=== PATIENT | male | born 1985 | race Caucasian/White ===

== ENCOUNTER 2019-03-17 15:15 | Emergency (ER) | payer OTHER, SELFPAY ==
[2019-03-17 15:49] VITALS: BP 118/77; PULSE 70; RESP 16; TEMP 37.1; O2SAT 98
--- NOTE | 2019-03-17 16:25 | ED.EYEPROB ---
HPI - Eye Problem <Nazanin Stapleton PA-C - Last Filed: 03/17/19 21:34> General Chief complaint: Eye Problems Stated complaint: Red in both eye, screaming headache for 3 days Time Seen by Provider: 03/17/19 16:10 Source: patient Mode of arrival: ambulatory Limitations: no limitations History of Present Illness HPI Narrative: This healthy 33-year-old male complains of red, irritated eyes with drainage and crusting for the last 3 days, started on the right. He has also had a ?pounding? headache, noticing more in the right side of the sinuses. He states he feels somewhat congested. He denies cough or wheeze. He has had intermittent fever at home along with several other family members. He denies rash or other new symptoms. He has tried Tylenol and fluids without relief. Related Data Allergies Allergy/AdvReac Type Severity Reaction Status Date / Time No Known Drug Allergies Allergy Verified 03/17/19 15:52 Review of Systems <Nazanin Stapleton PA-C - Last Filed: 03/17/19 21:34> Review of Systems ROS Unobtainable: All systems reviewed & are unremarkable except as noted in HPI and below PFSH <Nazanin Stapleton PA-C - Last Filed: 03/17/19 21:34> Medical History (Updated 03/17/19 @ 18:27 by Nazanin Stapleton PA-C) No chronic problems (Chronic) Surgical History (Updated 03/17/19 @ 17:11 by Nazanin Stapleton PA-C) No history of previous surgery (Chronic) Social History Smoking Status: Former smoker Social History Smoking Status: Former smoker Exam <Nazanin Stapleton PA-C - Last Filed: 03/17/19 21:34> Narrative Exam Narrative: GENERAL APPEARANCE: Patient sitting comfortably, in no distress. HEENT: PERRL, EOMI, bilateral conjunctivae injected with clear drainage, right TM minimally retracted, left is normal, erythematous oropharynx without exudate NECK: Supple, no masses LUNGS: Clear to auscultation bilaterally. HEART: Rate and rhythm regular without murmur, normal S1 and S2, no S3 or S4. NEUROLOGIC: Alert and oriented, normal speech, gait and coordination. MUSCULOSKELETAL: Full Csp AROM DERMATOLOGIC: No exanthem Initial Vital Signs Initial Vital Signs: Vital Signs Temperature 98.7 F 03/17/19 15:49 Pulse Rate 70 03/17/19 15:49 Respiratory Rate 16 03/17/19 15:49 Blood Pressure 118/77 03/17/19 15:49 Pulse Oximetry 98 03/17/19 15:49 <Mehul Acosta DO - Last Filed: 03/18/19 15:08> Initial Vital Signs Initial Vital Signs: Vital Signs Temperature 98.7 F 03/17/19 15:49 Pulse Rate 70 03/17/19 15:49 Respiratory Rate 16 03/17/19 15:49 Blood Pressure 118/77 03/17/19 15:49 Pulse Oximetry 98 03/17/19 15:49 Course <Nazanin Stapleton PA-C - Last Filed: 03/17/19 21:34> Orders Ordered: Discontinued Medications Ibuprofen (Advil) 800 mg PO NOW ONE Stop: 03/17/19 17:32 Last Admin: 03/17/19 17:33 Dose: 800 mg Vital Signs - 8 hr 03/17/19 15:49 Temperature 98.7 F Pulse Rate 70 Respiratory Rate 16 Blood Pressure 118/77 Pulse Oximetry 98 <Mehul Acosta DO - Last Filed: 03/18/19 15:08> Orders Ordered: Discontinued Medications Ibuprofen (Advil) 800 mg PO NOW ONE Stop: 03/17/19 17:32 Last Admin: 03/17/19 17:33 Dose: 800 mg Vital Signs - 8 hr 03/17/19 15:49 Temperature 98.7 F Pulse Rate 70 Respiratory Rate 16 Blood Pressure 118/77 Pulse Oximetry 98 Discharge Plan Departure Patient Disposition: Home Clinical Impression: Acute viral conjunctivitis of both eyes Sinusitis, acute Qualifiers: Sinusitis location: unspecified location Recurrence: non-recurrent Qualified Code(s): J01.90 - Acute sinusitis, unspecified Discharge Date/Time: 03/17/19 18:45 Interventions: ED Discharge Assessment Last Done: 03/17/19 18:45 Instructions: DI for Sinusitis, DI for Conjunctivitis Activity Restrictions/Additional Instructions: I suspect that your pink eye and upper respiratory symptoms including the headaches are due to a virus. Your headaches are most typical of sinus headache, which I believe is part of your infection. These are most commonly caused by a cold type virus and typically resolve on their own. Please take ibuprofen 600-800 mg every 8 hours to help with pain and fever. Add Tylenol as needed. Also take pseudoephedrine to help with your headache and congestion. Return here as we talked about if you have any acutely worsening symptoms, and you should see your eye doctor right away as we discussed if you have vision change or severe eye pain. Use warm compresses to help with the eye drainage and artificial tears type lubricating ointment as needed Referrals: [facility] [[facility]] <Mehul cAosta DO - Last Filed: 03/18/19 15:08> Cosign ED Attending Marco Attestation: I was immediately available in the department for consultation. Documentation has been reviewed. I agree with assessment and plan.
[2019-03-17] MEDS: IBUPROFEN 400 MG TABLET 800 MG PO (17:33)
== END 2019-03-17 18:45 | disposition home or self-care (01) ==
PROVIDERS: Emergency Provider Internal Medicine
DX: B30.9 Viral conjunctivitis, unspecified (principal); J01.90 Acute sinusitis, unspecified
CPT/HCPCS: 99282; 99283

== ENCOUNTER 2019-06-28 17:11 | Emergency (ER) | payer OTHER, SELFPAY ==
[2019-06-28 17:26] VITALS: BP 135/88; PULSE 85; RESP 16; TEMP 36.6; O2SAT 97
--- NOTE | 2019-06-28 17:41 | ED.WOUNDLAC ---
HPI - Wound/Laceration <KEIRA Ko - Last Filed: 06/28/19 19:06> General Chief Complaint: Wound/Laceration Stated Complaint: hit in left eye with a hay hook Time Seen by Provider: 06/28/19 17:31 Source: patient Mode of arrival: Ambulatory Limitations: no limitations History of Present Illness HPI narrative: 34-year-old male presents to the emergency department stating that he was hit in his left upper eyelid with a hay a hook. He states he was loading hay with the son when his son pulled out the hay hook from under the bail and accidentally hit him in the left eyelid. He states this happened a few hours ago. He denies any foreign objects in his left eye, eye pain, eye irritation, vision changes, eye discharge, facial pain, nausea, vomiting, diarrhea, excessive bleeding, or other concerns. He reports a small laceration to his left eyelid, bleeding controlled. Related Data Allergies Allergy/AdvReac Type Severity Reaction Status Date / Time No Known Drug Allergies Allergy Verified 06/28/19 17:28 Review of Systems <KEIRA Ko - Last Filed: 06/28/19 19:06> Review of Systems Narrative: REVIEW OF SYSTEMS: GENERAL: Denies fever or chills. HENT: Denies head trauma. EYE: Denies double vision or vision loss. CARDIOVASCULAR: Denies syncope. MUSCULOSKELETAL: Denies weakness, or deformities. INTEGUMENTARY: Complains of laceration, see HPI. NEURO: Denies numbness or tingling. Patient History <KEIRA Ko - Last Filed: 06/28/19 19:06> Medical History No chronic problems (Chronic) Surgical History No history of previous surgery (Chronic) Social History Smoking Status: Former smoker alcohol intake frequency: holidays/special occasions only Substance Use Type: does not use Exam <KEIRA Ko - Last Filed: 06/28/19 19:06> Narrative Exam Narrative: PHYSICAL EXAMINATION: GENERAL: Well groomed, alert, and cooperative. Answers questions promptly and appropriately. Vital signs noted. HENT: Normocephalic, atraumatic. EYE: PERRLA, EOMI with out pain, no foreign bodies, conjunctiva clear, sclear white. No exudate or discharge. RESPIRATORY: Normal respiratory rate, trachea midline, airway patent. No stridor, nasal flaring or accessory muscle use. MUSCULOSKELETAL: Normal gait and coordination. Equal tone and mass bilaterally. EXTREMITIES: CMS intact. Moves all extremities. SKIN: Warm, dry, soft, appropriate color for ethnicity. 2 cm laceration to upper left periorbital area. Wound bed without foreign body. Bleeding controlled. No surrounding erythema or exudate. NEURO: Alert and Oriented X 3. Good coordination. PSYCH: Appropriate affect and mood. Initial Vital Signs Initial Vital Signs: Vital Signs Temperature 97.8 F 06/28/19 17:26 Pulse Rate 85 06/28/19 17:26 Respiratory Rate 16 06/28/19 17:26 Blood Pressure 135/88 06/28/19 17:26 Pulse Oximetry 97 06/28/19 17:26 <Jodi Darden DO - Last Filed: 06/29/19 07:53> Initial Vital Signs Initial Vital Signs: Vital Signs Temperature 97.8 F 06/28/19 17:26 Pulse Rate 85 06/28/19 17:26 Respiratory Rate 16 06/28/19 17:26 Blood Pressure 135/88 06/28/19 17:26 Pulse Oximetry 97 06/28/19 17:26 Procedures <KEIRA Ko - Last Filed: 06/28/19 19:06> Laceration Repair Laceration 1: Site: face Side (If applicable): left Size (cm): 1.5 Description: linear Depth: simple, single layer Skin layer closed with: dermabond Course <KEIRA Ko - Last Filed: 06/28/19 19:06> Course Course Narrative: Patient's wound was irrigated with 100ml normal saline, wound was glued with Dermabond, see procedure note. Tdap was updated. Orders Ordered: Discontinued Medications Diphtheria/Tetanus/Acell Pertussis (Adacel) 0.5 ml IM .ONCE ONE Stop: 06/28/19 17:30 Last Admin: 06/28/19 17:59 Dose: 0.5 ml Documented by: XAVI Vital Signs Vital signs: Vital Signs - 8 hr 11/09/19 17:26 06/28/19 18:20 Temperature 97.8 F Pulse Rate 85 82 Respiratory Rate 16 16 Blood Pressure 135/88 129/77 Pulse Oximetry 97 96 <Jodi Darden DO - Last Filed: 06/29/19 07:53> Orders Ordered: Discontinued Medications Diphtheria/Tetanus/Acell Pertussis (Adacel) 0.5 ml IM .ONCE ONE Stop: 06/28/19 17:30 Last Admin: 06/28/19 17:59 Dose: 0.5 ml Documented by: XAVI Vital Signs Vital signs: Vital Signs - 8 hr 06/28/19 17:26 06/28/19 18:20 Temperature 97.8 F Pulse Rate 85 82 Respiratory Rate 16 16 Blood Pressure 135/88 129/77 Pulse Oximetry 97 96 MDM - Wound/Laceration <KEIRA Ko - Last Filed: 06/28/19 19:06> Medical Records Attestation: I reviewed the patient's medical records. Lab Data Attestation: I reviewed the patient's lab results. MDM Narrative Medical decision making narrative: Simple laceration repair without concern for eye involvement or foreign body in the eye due to history and lack of findings on examination. Patient was encouraged to monitor wound for infection. ED/Return precautions given for new or worsening symptoms. Discharge Plan Departure Patient Disposition: Home Clinical Impression: Laceration Discharge Date/Time: 06/28/19 18:20 Instructions: DI for Laceration Repair Activity Restrictions/Additional Instructions: Thank you for entrusting me with your care today. As discussed, you have a small laceration on your left eyelid that was repaired with glue. Please monitor for signs of infection such as increased redness, purulent drainage, or increased pain--if these occur please be seen immediately. Your also given urine Tdap injection, you may experience some soreness around the injection site. Return emergency department if he develops chest pain, shortness of breath, dizziness, or other concerning symptoms.
[2019-06-28] MEDS: TET,DIPH,PERTUSS(ACELL),VAC/PF 0.5 ML SYRINGE IM (17:59)
[2019-06-28 18:20] VITALS: BP 129/77; PULSE 82; RESP 16; O2SAT 96
== END 2019-06-28 18:20 | disposition home or self-care (01) ==
PROVIDERS: Emergency Provider Nurse Practitioner
DX: S01.112A Laceration without foreign body of left eyelid and periocular area, initial encounter (principal); W22.8XXA Striking against or struck by other objects, initial encounter; Z23 Encounter for immunization
CPT/HCPCS: 90471; 99282; 99283; 90715

== ENCOUNTER 2019-09-21 18:21 | Emergency (ER) | payer OTHER, SELFPAY ==
[2019-09-21 18:23] VITALS: BP 144/88; PULSE 81; RESP 18; TEMP 36.9; O2SAT 99
--- NOTE | 2019-09-21 18:26 | ED_ITS ---
HPI - GI Bleed General Chief complaint: Nausea/Vomiting/Diarrhea Stated complaint: blood in stool Time Seen by Provider: 09/21/19 18:25 Source: patient Mode of arrival: Ambulatory Limitations: no limitations History of Present Illness HPI Narrative: The patient complains of watery diarrhea for 1 week. He has had no nausea vomiting. He is eating and drinking. We has a bowel movement he also experiences crampy lower abdominal pain. He denies associated fever chills. The situation may have started after he consumed a salsa, described as very hot. He has had that food before without similar situation. He has no history of GI disease. He is now experiencing drops of blood when he has the watery diarrhea. He has rectal pain when he has a diarrhea. He was [facility] at [facility] ago and given promethazine for nausea. He has used the medication a couple times, the lower abdominal cramping pain seems to be the more significant issue. He has no chronic medical problems. He has no urine complaints with the lower abdominal discomfort. Related Data Previous Rx's Medication Instructions Recorded levofloxacin [Levaquin] 500 mg PO DAILY 7 Days tab 09/21/19 Allergies Allergy/AdvReac Type Severity Reaction Status Date / Time No Known Drug Allergies Allergy Verified 06/28/19 17:28 Review of Systems Review of Systems ROS Unobtainable: All systems reviewed & are unremarkable except as noted in HPI and below Constitutional Constitutional: Denies body ache(s), Denies chills, Denies fatigue and Denies fever(s) ENT Ears, Nose, Mouth, and Throat: Denies dizziness Comments: No ENT complaints Cardiovascular Cardiovascular: Denies chest pain, Denies irregular heart rhythm, Denies lightheadedness, Denies palpitations, Denies dyspnea and Denies dyspnea on exertion Respiratory Respiratory: Denies cough, Denies dyspnea, Denies dyspnea on exertion and Denies wheezing Gastrointestinal Gastrointestinal: Reports as per HPI, Reports abdominal pain, Reports change in bowel habits, Reports diarrhea, Denies nausea and Denies vomiting Genitourinary Genitourinary: Denies dysuria, Denies testicular pain and Denies urinary urgency Musculoskeletal Musculoskeletal: Denies back pain and Denies numbness Integumentary/Breasts Skin/Breast: Denies erythema, Denies rash and Denies wounds Neurologic Neurologic: Denies dizziness and Denies numbness Endocrine Endocrine: Denies fatigue and Denies palpitations Allergic/Immunologic Allergic/Immunologic: Denies wheezing Patient History Medical History No chronic problems (Chronic) Surgical History No history of previous surgery (Chronic) Social History Smoking Status: Former smoker Smoking Status: Former smoker alcohol intake frequency: holidays/special occasions only Substance Use Type: does not use Exam Initial Vital Signs Initial Vital Signs: Vital Signs Temperature 98.4 F 09/21/19 18:23 Pulse Rate 81 09/21/19 18:23 Respiratory Rate 18 09/21/19 18:23 Blood Pressure 144/88 H 09/21/19 18:23 Pulse Oximetry 99 09/21/19 18:23 Const General: cooperative and well developed Nutritional Appearance: well nourished HENRI Head: normocephalic and atraumatic Mouth: oral mucosae normal and moist mucous membranes Throat: posterior oropharynx normal Eyes Conjunctivae: conjunctivae normal Resp Effort & Inspection: normal respiratory effort and able to speak in complete sentences Auscultation: clear to auscultation bilaterally, no rales, no rhonchi and no wheezes Cardio Rate: regular rate Rhythm: regular rhythm Heart Sounds: S1 normal, S2 normal, no click, no gallops, no murmurs and no rubs Pulses: normal peripheral pulses GI Inspection: non-distended Palpation: soft, no hepatosplenomegaly, No pulsatile mass and tender (Mild suprapubic and LLQ tenderness. No guarding or rebound.) Auscultation: normal bowel sounds Back/Spine/Pelvis Back: No CVA tenderness Skin General: no rashes or lesions noted Neuro General: alert, oriented x3, gait normal and no focal motor deficits Speech: speech normal Extrem General: full ROM, no pedal edema and no calf tenderness Psych Appearance: well kempt Mental Status: mental status grossly normal Attitude: cooperative Thought Content: normal Judgment: judgment good Course Orders Ordered: Discontinued Medications Sodium Chloride (Normal Saline 0.9%) 1,000 mls @ 1,000 mls/hr IV BOLUS ONE Stop: 09/21/19 19:35 Last Infusion: 09/21/19 21:00 Dose: 0 mls/hr Documented by: Admin: 09/21/19 19:02 Dose: 1,000 mls/hr Documented by: JOVANNY Levofloxacin (Levaquin) 500 mg PO NOW ONE Stop: 09/21/19 21:33 Last Admin: 09/21/19 21:51 Dose: 500 mg Documented by: CLARITA Pantoprazole Sodium (Protonix) 40 mg IV NOW ONE Stop: 09/21/19 18:37 Last Admin: 09/21/19 19:02 Dose: 40 mg Documented by: JOVANNY Vital Signs Vital signs: Vital Signs - 8 hr 09/21/19 18:23 09/21/19 20:45 09/21/19 21:09 Temperature 98.4 F 100.0 F H 99.5 F Pulse Rate 81 85 Respiratory Rate 18 Blood Pressure 144/88 H Blood Pressure [Left Arm] 160/94 H Pulse Oximetry 99 100 MDM - GI Bleed Lab Data Result diagrams: 09/21/19 18:46 09/21/19 18:46 Labs: Lab Results 09/21/19 09/21/19 09/21/19 Range/Units 18:46 18:46 19:29 WBC 10.2 (4.5-11.0) X10^3/uL RBC 4.70 (4.5-5.9) X10^6/uL Hgb 14.3 (13.5-17.5) g/dL Hct 41.7 (41-53) % MCV 88.6 (80-100) fL MCH 30.5 (26-34) PG MCHC 34.4 (30-36) % RDW 12.7 (11.6-14.8) % Plt Count 241 (150-400) X10^3/uL Neut % (Auto) 65.2 (50-75) % Lymph % (Auto) 22.6 L (25-40) % [place] % (Auto) 10.4 (3-14) % Eos % (Auto) 1.4 L (2-4) % Baso % (Auto) 0.4 (0-2) % Neut # (Auto) 6700 (1541-5265) /uL Lymph # (Auto) 2300 (4500-8488) /uL Tw[place]gs # (Auto) 1100 H (0-900) /uL Eos # (Auto) 100 (0-450) /uL Baso # (Auto) 0 (0-100) /uL Sodium 142 (137-145) mmol/L Potassium 3.6 (3.4-5.1) mmol/L Chloride 104 (98-107) mmol/L Carbon Dioxide 29 (22-32) mmol/L BUN 15 (9-20) mg/dL Creatinine 1.10 (0.66-1.25) mg/dL Estimated GFR > 60.0 (>60) mL/min BUN/Creatinine Ratio 13.6 (6-22) Glucose 92 (70-100) mg/dL Calcium 9.3 (8.4-10.2) mg/dL Total Bilirubin 0.6 (0.2-1.3) mg/dL AST 37 (17-59) IU/L ALT 30 (<50) IU/L Alkaline Phosphatase 71 (38-126) U/L Total Protein 7.8 (6.3-8.2) g/dL Albumin 4.3 (3.5-5.0) g/dL Globulin 3.5 (1.7-4.1) g/dL Albumin/Globulin Ratio 1.2 (1.0-2.8) Lipase 104 (23-300) U/L Urine Color Urine Appearance Urine pH (4.5-8.0) Ur Specific [place] (1.000-1.035) Urine Protein (Negative) Urine Glucose (UA) (Negative) g/dL Urine Ketones (NEGATIVE) Urine Occult Blood (Negative) Urine Nitrate (Negative) Urine Bilirubin (NEGATIVE) Urine Urobilinogen (0.2) E.U./dL Ur Leukocyte Esterase (NEGATIVE) Urine RBC (0-5/HPF) Urine WBC (0-5/HPF) Urine Bacteria (None) Ur Culture Indicated? Stl C. cayetanensis PCR Not detected (Not Detect) Stool Rotavirus (PCR) Not detected (Not Detect) Stool Adenovirus (PCR) Not detected (Not Detect) Stool Astrovirus (PCR) Not detected (Not Detect) Stool Cryptosporidium PCR Not detected (Not Detect) Stl E.coli Shiga Tox PCR Not detected (Not Detect) St Sh/Enteroin Ecoli PCR Not detected (Not Detect) Stool E coli O157 PCR Not detected (Not Detect) Stl Enterotoxigenic E PCR Not detected (Not Detect) Stool EPEC (PCR) Not detected (Not Detect) Stl E. histolytica PCR Not detected (Not Detect) Stool Giardia Lamblia PCR Not detected (Not Detect) Stool Sapovirus (PCR) Not detected (Not Detect) Stl P. shigelloides PCR Not detected (Not Detect) St Y.enterocolitica PCR Not detected (Not Detect) Stool Vibrio (PCR) Not detected (Not Detect) Stl Vibrio cholerae PCR Not detected (Not Detect) Stl Enteroaggr Ecoli PCR Not detected (Not Detect) Stl Norovirus GI/GII PCR Not detected (Not Detect) Campylobacter (PCR) Detected H (Not Detect) C. difficile Tox (PCR) Not detected (Not Detect) Salmonella (PCR) Not detected (Not Detect) 09/21/19 Range/Units 19:29 WBC (4.5-11.0) X10^3/uL RBC (4.5-5.9) X10^6/uL Hgb (13.5-17.5) g/dL Hct (41-53) % MCV (80-100) fL MCH (26-34) PG MCHC (30-36) % RDW (11.6-14.8) % Plt Count (150-400) X10^3/uL Neut % (Auto) (50-75) % Lymph % (Auto) (25-40) % Tw[place]gs % (Auto) (3-14) % Eos % (Auto) (2-4) % Baso % (Auto) (0-2) % Neut # (Auto) (1391-1199) /uL Lymph # (Auto) (9378-2863) /uL [place]gs # (Auto) (0-900) /uL Eos # (Auto) (0-450) /uL Baso # (Auto) (0-100) /uL Sodium (137-145) mmol/L Potassium (3.4-5.1) mmol/L Chloride (98-107) mmol/L Carbon Dioxide (22-32) mmol/L BUN (9-20) mg/dL Creatinine (0.66-1.25) mg/dL Estimated GFR (>60) mL/min BUN/Creatinine Ratio (6-22) Glucose (70-100) mg/dL Calcium (8.4-10.2) mg/dL Total Bilirubin (0.2-1.3) mg/dL AST (17-59) IU/L ALT (<50) IU/L Alkaline Phosphatase (38-126) U/L Total Protein (6.3-8.2) g/dL Albumin (3.5-5.0) g/dL Globulin (1.7-4.1) g/dL Albumin/Globulin Ratio (1.0-2.8) Lipase (23-300) U/L Urine Color Yellow Urine Appearance Clear Urine pH 6.5 (4.5-8.0) Ur Specific [place] 1.020 (1.000-1.035) Urine Protein Negative (Negative) Urine Glucose (UA) Negative (Negative) g/dL Urine Ketones Negative (NEGATIVE) Urine Occult Blood Negative (Negative) Urine Nitrate Negative (Negative) Urine Bilirubin Negative (NEGATIVE) Urine Urobilinogen 0.2 (0.2) E.U./dL Ur Leukocyte Esterase Negative (NEGATIVE) Urine RBC None seen (0-5/HPF) Urine WBC None seen (0-5/HPF) Urine Bacteria None seen (None) Ur Culture Indicated? Cult not indicated Stl C. cayetanensis PCR (Not Detect) Stool Rotavirus (PCR) (Not Detect) Stool Adenovirus (PCR) (Not Detect) Stool Astrovirus (PCR) (Not Detect) Stool Cryptosporidium PCR (Not Detect) Stl E.coli Shiga Tox PCR (Not Detect) St Sh/Enteroin Ecoli PCR (Not Detect) Stool E coli O157 PCR (Not Detect) Stl Enterotoxigenic E PCR (Not Detect) Stool EPEC (PCR) (Not Detect) Stl E. histolytica PCR (Not Detect) Stool Giardia Lamblia PCR (Not Detect) Stool Sapovirus (PCR) (Not Detect) Stl P. shigelloides PCR (Not Detect) St Y.enterocolitica PCR (Not Detect) Stool Vibrio (PCR) (Not Detect) Stl Vibrio cholerae PCR (Not Detect) Stl Enteroaggr Ecoli PCR (Not Detect) Stl Norovirus GI/GII PCR (Not Detect) Campylobacter (PCR) (Not Detect) C. difficile Tox (PCR) (Not Detect) Salmonella (PCR) (Not Detect) Discharge Plan Departure Patient Disposition: Home Clinical Impression: Campylobacter gastroenteritis Discharge Date/Time: 09/21/19 22:29 Instructions: DI for Bacterial Gastroenteritis -- Adult Activity Restrictions/Additional Instructions: Be sure you are drinking plenty of fluids and remain well hydrated. Zofran every 4 hours as needed for nausea. Levaquin 1 tablet daily for 7 days. Follow-up with [facility] in 2-3 days for recheck, return to the ER as needed. Prescriptions: New levofloxacin [Levaquin] 500 mg tablet 500 mg PO DAILY 7 Days RF: 0 Stand Alone Forms: Work Release Note
[2019-09-21] MEDS: SODIUM CHLORIDE 0.9% 1,000 ML 1000 ML IV (19:02)
[2019-09-21] MEDS: PANTOPRAZOLE 40 MG VIAL IV (19:02)
[2019-09-21 19:03] LABS: Add Manual Diff / Slide Review NO; Basophils Absolute Auto 0 /uL (0-100); Basophils Percent Auto 0.4 % (0-2); Eosinophils Absolute Auto 100 /uL (0-450); Eosinophils Percent Auto 1.4 % (2-4); Hematocrit 41.7 % (41-53); Hemoglobin 14.3 g/dL (13.5-17.5); Lymphocytes Absolute Auto 2300 /uL (1100-4500); Lymphocytes Percent Auto 22.6 % (25-40); Mean Corpuscular HGB Conc 34.4 % (30-36); Mean Corpuscular Hemoglobin 30.5 PG (26-34); Mean Corpuscular Volume 88.6 fL (80-100); Monocytes Absolute Auto 1100 /uL (0-900); Monocytes Percent Auto 10.4 % (3-14); Neutrophils Absolute Auto 6700 /uL (1500-7000); Neutrophils Percent Auto 65.2 % (50-75); Platelet Count 241 X10^3/uL (150-400); Red Cell Distribution Width 12.7 % (11.6-14.8); White Blood Cell Count 10.2 X10^3/uL (4.5-11.0)
[2019-09-21 19:18] LABS: Alanine Aminotransferase 30 IU/L (<50); Albumin 4.3 g/dL (3.5-5.0); Albumin Globulin Ratio 1.2 (1.0-2.8); Alkaline Phosphatase 71 U/L (38-126); Aspartate Aminotransferase 37 IU/L (17-59); BUN Creatinine Ratio 13.6 (6-22); Bilirubin Total 0.6 mg/dL (0.2-1.3); Blood Urea Nitrogen 15 mg/dL (9-20); Calcium 9.3 mg/dL (8.4-10.2); Carbon Dioxide 29 mmol/L (22-32); Chloride 104 mmol/L (98-107); Estimated Glomerular Filt Rate > 60.0 mL/min (>60); Globulin 3.5 g/dL (1.7-4.1); Glucose 92 mg/dL (70-100); HEMOLYSIS < 15 (0-50); Lipase 104 U/L (23-300); Potassium 3.6 mmol/L (3.4-5.1); Sodium 142 mmol/L (137-145); Total Protein 7.8 g/dL (6.3-8.2)
[2019-09-21 19:39] LABS: Bacteria Urine None Seen; RBC Urine None Seen (0-5/HPF); WBC Urine None Seen (0-5/HPF)
[2019-09-21 19:40] LABS: Appearance Urine UA CLEAR; Bilirubin Urine UA NEGATIVE (NEGATIVE); Color Urine UA YELLOW; Glucose Urine UA NEGATIVE (Negative); Ketones Urine UA NEGATIVE (NEGATIVE); Leukocyte Esterase Urine UA NEGATIVE (NEGATIVE); Nitrite Urine UA NEGATIVE (Negative); Occult Blood Urine UA NEGATIVE (Negative); Protein Urine UA NEGATIVE (Negative); Urobilinogen Urine UA 0.2 E.U./dL (0.2); pH Urine UA 6.5 (4.5-8.0)
[2019-09-21 19:50] LABS: Culture Indicated Urine Cult Not Indicated
[2019-09-21 20:45] VITALS: BP 160/94; PULSE 85; TEMP 37.8; O2SAT 100
[2019-09-21 21:07] LABS: Adenovirus F 40/41 Not Detected (Not Detect); Astrovirus Not Detected (Not Detect); Clostridium difficile toxin AB Not Detected (Not Detect); Cryptosporidium Not Detected (Not Detect); Cyclospora cayetanensis Not Detected (Not Detect); Entamoeba histolytica Not Detected (Not Detect); Enteroaggregative E.coli Not Detected (Not Detect); Enteropathogenic E.coli Not Detected (Not Detect); Enterotoxigenic E.coli It/st Not Detected (Not Detect); Giardia lamblia Not Detected (Not Detect); Norovirus GI/GII Not Detected (Not Detect); Plesiomonsa shigelloides Not Detected (Not Detect); Rotavirus A Not Detected (Not Detect); Salmonella Not Detected (Not Detect); Sapovirus Not Detected (Not Detect); Shiga-like toxin-prod E.coli Not Detected (Not Detect); Shigella/Enteroinvasive E.coli Not Detected (Not Detect); Vibrio Not Detected (Not Detect); Vibrio cholerae Not Detected (Not Detect); Yersinia enterocolitica Not Detected (Not Detect)
[2019-09-21 21:09] VITALS: TEMP 37.5
[2019-09-21] MEDS: levoFLOXacin 250 MG TABLET 500 MG PO (21:51)
[2019-09-22 07:36] LABS: Campylobacter Detected (Not Detect)
== END 2019-09-21 22:29 | disposition home or self-care (01) ==
PROVIDERS: Emergency Provider Emergency Medicine
DX: A04.5 Campylobacter enteritis (principal); R10.9 Unspecified abdominal pain
CPT/HCPCS: 36415; 80053; 81001; 83690; 85025; 87507; 96361; 96374; 99284; C9113

== ENCOUNTER 2020-07-09 02:38 | Emergency (ER) | payer OTHER, SELFPAY ==
[2020-07-09 02:46] VITALS: BP 116/72; PULSE 78; RESP 18; TEMP 36.9; O2SAT 99; BMI 29.1
--- NOTE | 2020-07-09 02:49 | ED_ITS ---
HPI - Abdominal Pain General Chief Complaint: Abdominal Pain Stated Complaint: Abdominal pain Time Seen by Provider: 07/09/20 02:42 Source: patient and EMS Mode of arrival: EMS Limitations: no limitations History of Present Illness HPI narrative: 35-year-old male nonsmoker with a relatively recent diagnosis of ulcerative colitis, managed by GI at [facility] presents with a chief complaint of severe lower abdominal pain, gradually worsening over the past few days. He denies any fever chills but states that he has had nausea, loose stool with blood in it and the worst pain that he has had yet. His diagnosis was made over the summer and he has been on a stable regimen of medications. He had been in contact with his GI doctor and was put on hyoscyamine yesterday in addition to his other chronic meds. He denies any change in his diet. Or exposure to other persons with similar symptoms. He states his pain is 6/10 while laying, 8/10 when sitting up and jumps to a 10/10 while standing. MD complaint: abdominal pain Onset (ago): day(s) Pain Consistency: constant Location: suprapubic Severity: severe Quality: cramping and stabbing Related Data Previous Rx's Medication Instructions Recorded prednisone 40 mg PO DAILY 14 Days tab 07/09/20 Allergies Allergy/AdvReac Type Severity Reaction Status Date / Time No Known Drug Allergies Allergy Verified 07/09/20 02:46 Review of Systems Constitutional Constitutional: Denies chills, Denies fatigue, Denies fever(s), Denies frequent falls, Denies lethargy and Denies weakness Eyes Eyes: Denies change in vision, Denies eye discharge, Denies irritation and Den ies loss of vision ENT Ears, Nose, Mouth, and Throat: Denies change in voice, Denies dizziness, Denies neck pain, Denies sore throat and Denies throat swelling Cardiovascular Cardiovascular: Denies chest pain, Denies irregular heart rhythm, Denies lightheadedness, Denies palpitations, Denies dyspnea, Denies dyspnea on exertion and Denies orthopnea Respiratory Respiratory: Denies cough, Denies dyspnea, Denies dyspnea on exertion and Denies wheezing Gastrointestinal Gastrointestinal: Reports abdominal pain, Reports hematochezia, Denies change in bowel habits, Denies diarrhea, Denies nausea and Denies vomiting Musculoskeletal Musculoskeletal: Denies neck pain and Denies numbness Integumentary/Breasts Skin/Breast: Denies pruritus, Denies erythema, Denies rash and Denies wounds Neurologic Neurologic: Denies behavioral changes, Denies confusion, Denies dizziness, Denies frequent falls, Denies loss of vision, Denies numbness and Denies weakness Psychiatric Psychiatric: Denies anxiety, Denies behavioral changes, Denies confusion, Denies depression, Denies homicidal ideation and Denies suicidal ideation Endocrine Endocrine: Denies fatigue, Denies flushing and Denies palpitations Hematologic/Lymphatic Hematologic/Lymphatic: Denies easy bruising Allergic/Immunologic Allergic/Immunologic: Denies urticaria, Denies throat swelling and Denies wheezing Patient History Medical History (Updated 07/09/20 @ 06:08 by Mehul Acosta DO) No chronic problems Surgical History No history of previous surgery Social History Smoking Status: Former smoker Smoking Status: Former smoker alcohol intake frequency: holidays/special occasions only Substance Use Type: does not use Exam Narrative Exam Narrative: GENERAL: [35] year old patient appears stated age. Well- nourished, well-developed patient, in mild distress. HEAD: Atraumatic. Normocephalic. EYES: Pupils equal round and reactive. Extraocular motions intact. No scleral icterus. No injection or drainage. ENT: Nose without bleeding, purulent drainage. Throat without erythema, tonsillar hypertrophy or exudate. Airway patent. NECK: Trachea midline. Non tender CARDIOVASCULAR: Regular rate and rhythm without murmurs, gallops, or rubs. RESPIRATORY: Clear to auscultation. Breath sounds equal bilaterally. No wheezes, rales, or rhonchi. GASTROINTESTINAL: Abdomen soft, non-tender, nondistended. EXTREMITIES: No edema or joint tenderness. BACK: Nontender without deformity or crepitance. No flank tenderness. NEURO: AOx3. SKIN: No rash or erythema of visible areas Initial Vital Signs Initial Vital Signs: Vital Signs Temperature 98.4 F 07/09/20 02:46 Pulse Rate 78 07/09/20 02:46 Respiratory Rate 18 07/09/20 02:46 Blood Pressure 116/72 07/09/20 02:46 Pulse Oximetry 99 07/09/20 02:46 Course Orders Ordered: ED Orders 07/09/20 03:08 Complete Blood Count AUTO DIFF Stat Comprehensive Metabolic Panel Stat Lipase Stat 07/09/20 03:45 CT abdomen pelvis w con Stat Sodium Chloride (Normal Saline 0.9%) 1,000 mls @ 150 mls/hr IV CONT ARCHIE Last Admin: 07/09/20 03:17 Dose: 150 mls/hr Documented by: LISA Discontinued Medications Hydrocodone Bitart/Acetaminophen (Hydrocodone/Acet 5/325 Prepack) 1 bottle MISC SEEINSTR ONE Stop: 07/09/20 06:06 Hydromorphone HCl (Hydromorphone 0.5 Mg Inj) 0.5 mg IV NOW ONE Stop: 07/09/20 03:03 Last Admin: 07/09/20 03:17 Dose: 0.5 mg Documented by: LISA Methylprednisolone (Methylprednisolone 125 Mg/2 Ml Vial) 125 mg IV NOW ONE Stop: 07/09/20 06:00 Ondansetron HCl (Ondansetron 4 Mg/2 Ml Inj) 4 mg IV NOW ONE Stop: 07/09/20 03:03 Last Admin: 07/09/20 03:17 Dose: 4 mg Documented by: LISA Consultations Consultation #1: call to Dr. Mir. Likely an Ulcerative Colitis flare. Recommends stool sample if possible, prednisone, follow up Vital Signs Vital signs: Vital Signs - 8 hr 07/09/20 02:46 07/09/20 05:22 Temperature 98.4 F Pulse Rate 78 63 Respiratory Rate 18 Blood Pressure 116/72 Pulse Oximetry 99 96 MDM - Abdominal Pain Lab Data Result diagrams: 07/09/20 03:08 07/09/20 03:08 Labs: Lab Results 07/09/20 07/09/20 Range/Units 03:08 03:08 WBC 8.9 (4.5-11.0) X10^3/uL RBC 4.66 (4.5-5.9) X10^6/uL Hgb 14.2 (13.5-17.5) g/dL Hct 41.7 (41-53) % MCV 89.6 (80-100) fL MCH 30.4 (26-34) PG MCHC 33.9 (30-36) % RDW 12.0 (11.6-14.8) % Plt Count 221 (150-400) X10^3/uL Neut % (Auto) 54.5 (50-75) % Lymph % (Auto) 31.9 (25-40) % [place] % (Auto) 11.6 (3-14) % Eos % (Auto) 1.6 L (2-4) % Baso % (Auto) 0.4 (0-2) % Neut # (Auto) 4900 (5346-2201) /uL Lymph # (Auto) 2800 (1937-9133) /uL [place] # (Auto) 1000 H (0-900) /uL Eos # (Auto) 100 (0-450) /uL Baso # (Auto) 0 (0-100) /uL Sodium 137 (137-145) mmol/L Potassium 3.4 (3.4-5.1) mmol/L Chloride 106 (98-107) mmol/L Carbon Dioxide 28 (22-32) mmol/L BUN 15 (9-20) mg/dL Creatinine 0.83 (0.66-1.25) mg/dL Estimated GFR > 60.0 (>60) mL/min BUN/Creatinine Ratio 18.1 (6-22) Glucose 110 H (70-100) mg/dL Calcium 8.9 (8.4-10.2) mg/dL Total Bilirubin 0.4 (0.2-1.3) mg/dL AST 22 (17-59) IU/L ALT 24 (<50) IU/L Alkaline Phosphatase 67 (38-126) U/L Total Protein 7.3 (6.3-8.2) g/dL Albumin 4.0 (3.5-5.0) g/dL Globulin 3.3 (1.7-4.1) g/dL Albumin/Globulin Ratio 1.2 (1.0-2.8) Lipase 165 (23-300) U/L Imaging Data CT scan - abdomen/pelvis: Radiologist's Impression: No significant findings Discharge Plan Departure Patient Disposition: Home Clinical Impression: Ulcerative colitis, acute Qualifiers: Digestive disease complication type: without complication Qualified Code(s): K51.90 - Ulcerative colitis, unspecified, without complications Instructions: DI for Ulcerative Colitis Activity Restrictions/Additional Instructions: *You have been diagnosed with [acute ulcerative colitis flare. Your labs and CT scan are very reassuring. Of discussed your care with Dr. Mir and he recommended we add steroids, some pain meds and you call the office later this morning to arrange for follow-up] *What to do: *Take medications as directed *Return to ER if you should have any new, worsening or concerning symptoms Prescriptions: New prednisone 20 mg tablet 40 mg PO DAILY 14 Days RF: 0 Referrals: Fuad Mir MD [Non-Staff] -
[2020-07-09] MEDS: SODIUM CHLORIDE 0.9% 1,000 ML 150 ML IV (03:17)
[2020-07-09] MEDS: HYDROMORPHONE 0.5 MG INJ IV ×2 (03:17→06:35)
[2020-07-09] MEDS: ONDANSETRON 4 MG/2 ML INJ IV (03:17)
[2020-07-09 03:20] LABS: Add Manual Diff / Slide Review NO; Basophils Absolute Auto 0 /uL (0-100); Basophils Percent Auto 0.4 % (0-2); Eosinophils Absolute Auto 100 /uL (0-450); Eosinophils Percent Auto 1.6 % (2-4); Hematocrit 41.7 % (41-53); Hemoglobin 14.2 g/dL (13.5-17.5); Lymphocytes Absolute Auto 2800 /uL (1100-4500); Lymphocytes Percent Auto 31.9 % (25-40); Mean Corpuscular HGB Conc 33.9 % (30-36); Mean Corpuscular Hemoglobin 30.4 PG (26-34); Mean Corpuscular Volume 89.6 fL (80-100); Monocytes Absolute Auto 1000 /uL (0-900); Monocytes Percent Auto 11.6 % (3-14); Neutrophils Absolute Auto 4900 /uL (1500-7000); Neutrophils Percent Auto 54.5 % (50-75); Platelet Count 221 X10^3/uL (150-400); Red Blood Cell Count 4.66 X10^6/uL (4.5-5.9); White Blood Cell Count 8.9 X10^3/uL (4.5-11.0)
[2020-07-09 03:27] LABS: Alanine Aminotransferase 24 IU/L (<50); Albumin Globulin Ratio 1.2 (1.0-2.8); Alkaline Phosphatase 67 U/L (38-126); Aspartate Aminotransferase 22 IU/L (17-59); BUN Creatinine Ratio 18.1 (6-22); Bilirubin Total 0.4 mg/dL (0.2-1.3); Blood Urea Nitrogen 15 mg/dL (9-20); Calcium 8.9 mg/dL (8.4-10.2); Carbon Dioxide 28 mmol/L (22-32); Chloride 106 mmol/L (98-107); Estimated Glomerular Filt Rate > 60.0 mL/min (>60); Globulin 3.3 g/dL (1.7-4.1); Glucose 110 mg/dL (70-100); HEMOLYSIS < 15 (0-50); Lipase 165 U/L (23-300); Potassium 3.4 mmol/L (3.4-5.1); Sodium 137 mmol/L (137-145); Total Protein 7.3 g/dL (6.3-8.2)
--- NOTE | 2020-07-09 03:45 | DI.CT.S_ITS ---
PROCEDURE: CT ABDOMEN PELVIS W CON INDICATIONS: Severe abdominal pain, known ulcerative colitis TECHNIQUE: After the administration of intravenous contrast, 5 mm thick sections acquired from the diaphragm to the symphysis. 5 mm coronal and sagittal reformats were acquired. For radiation dose reduction, the following was used: automated exposure control, adjustment of mA and/or kV according to patient size. COMPARISON: [facility], CT, CT ABDOMEN PELVIS WITH CONTRAST, 03/24/2020, 21:26. FINDINGS: Image quality: Excellent. ABDOMEN: Lung bases: Bibasilar dependent atelectasis. Heart size is normal. Tiny hiatal hernia. Solid organs: Liver is normal in size and enhancement. Gallbladder is normal . Biliary system is non dilated. Pancreas enhances normally. Spleen is normal in size and enhancement. No adrenal nodules. Kidneys demonstrate normal size and enhancement, without hydronephrosis. Peritoneum and bowel: Bowel loops demonstrate normal caliber. Descending and sigmoid colon, as well as rectum, appears mildly thickened although the appearance could be caused by lack of contrast distension. There is mild early submucosal fat deposition in rectum and mild widening of presacral space with lipomatosis, consistent with known history of ulcerative colitis. Appendix is normal. No free fluid or air. Nodes and vessels: No retroperitoneal or mesenteric adenopathy by size criteria. Aorta and inferior vena cava are normal in size. Miscellaneous: No ventral hernias. PELVIS: Genitourinary: Bladder wall thickness is normal. Miscellaneous: No inguinal hernias or adenopathy. Bones: No suspicious bony lesions. No vertebral body compression fractures. IMPRESSION: 1. Mild colonic wall thickening is present involving the descending and sigmoid colon, as well as rectum. The appearance, however, could be caused by artifact from inadequate distention. 2. Otherwise no acute intra-abdominal or pelvic process. No significant discrepancy with the cage shift manager radiology preliminary report. Dictated by: Cristy Navas M.D. on 07/09/2020 at 7:41 Approved by: Cristy Navas M.D. on 07/09/2020 at 8:10
[2020-07-09 05:22] VITALS: PULSE 63; O2SAT 96
[2020-07-09 05:30] VITALS: BP 111/67; PULSE 62; O2SAT 98
[2020-07-09 06:00] VITALS: BP 110/69; PULSE 59; O2SAT 97
[2020-07-09] MEDS: HYDROCODONE/ACET 5/325 PREPACK 1 BOTTLE MISC (06:10)
[2020-07-09] MEDS: methylPREDNISolone 125 MG/2 ML VIAL IV (06:10)
[2020-07-09 06:30] VITALS: BP 119/71; PULSE 63; O2SAT 98
== END 2020-07-09 07:09 | disposition home or self-care (01) ==
PROVIDERS: Emergency Provider Emergency Medicine
DX: K51.90 Ulcerative colitis, unspecified, without complications (principal); R11.0 Nausea; K92.1 Melena
CPT/HCPCS: 74177; 80053; 83690; 85025; 96361; 96374; 96375; 96376; 99281; 99284; J1170; J2405; J2930

== ENCOUNTER 2022-02-02 22:20 | Emergency (ER) | payer OTHER, SELFPAY ==
[2022-02-02 22:28] VITALS: BP 131/84; PULSE 88; RESP 15; TEMP 36.6; O2SAT 96; BMI 31.1
[2022-02-02 23:43] VITALS: BP 141/98; PULSE 90; RESP 18
--- NOTE | 2022-02-02 23:59 | PC.NURSE ---
Pt has a prominent red line, erythma, from right thumb up the inner forearm and inner upper arm. Pt had marked where the redness was as of yesterday and it has gone beyond that line today. This line is painful to palpation.
--- NOTE | 2022-02-03 00:21 | ED.EXTPRO ---
HPI - Extremity Problem General Chief complaint: Extremity Problem,Nontraumatic Stated complaint: infected finger Time Seen by Provider: 02/02/22 23:42 Source: patient Mode of arrival: Ambulatory Limitations: no limitations History of Present Illness HPI Narrative: Patient is a 36-year-old male. Has a history of ulcerative colitis. Recently received an infusion of medication into his left AC. He states that afterwards he injured his right thumb. There was a small nodule on his right thumb and then the pain progressed up to his IP joint and MCP joint and then into his hand and then over the past several hours has noticed redness moving up his arm on the inside of his right upper arm. No fevers. He did tried to drain that small nodule the end of his thumb without any success. Related Data Previous Rx's Medication Instructions Recorded doxycycline hyclate 100 mg tablet 100 mg PO BID 7 days #14 tabs 02/03/22 Allergies Allergy/AdvReac Type Severity Reaction Status Date / Time No Known Drug Allergies Allergy Verified 07/09/20 02:46 Review of Systems Constitutional Constitutional: Denies fever(s) Integumentary/Breasts Skin/Breast: Reports system reviewed and no additional complaints, except as documented Neurologic Neurologic: Reports system reviewed and no additional complaints, except as documented Hematologic/Lymphatic On Anticoagulants: No Patient History Medical History No chronic problems Ulcerative colitis Surgical History No history of previous surgery Social History Smoking Status: Former smoker Smoking Status: Former smoker alcohol intake frequency: holidays/special occasions only Substance Use Type: does not use Exam Initial Vital Signs Initial Vital Signs: Vital Signs Temperature 97.8 F 02/02/22 22:28 Pulse Rate 88 02/02/22 22:28 Respiratory Rate 15 02/02/22 22:28 Blood Pressure 131/84 02/02/22 22:28 Pulse Oximetry 96 02/02/22 22:28 Oxygen Delivery Method 02/02/22 22:28 Const General: cooperative and comfortable HENMT Head: normal to inspection and normocephalic Cardio Pulses: radial pulses present on the right Skin Other: Patient with redness located on the right forearm that extends in line a past the AC joint into his medial aspect of her right upper arm. Neuro Speech: speech normal Extrem Other: He does have a small crack in the skin at the distal aspect of his right thumb and a small nodule located next to this. It is not tender to palpation. Course Orders Ordered: Discontinued Medications Doxycycline Hyclate (Doxycycline Hyclate 100 Mg Tablet) 100 mg PO NOW ONE Stop: 02/03/22 00:23 Last Admin: 02/03/22 00:28 Dose: 100 mg Documented By: HIMA Vital Signs Vital signs: Vital Signs - 8 hr 02/02/22 22:28 02/02/22 23:43 Temperature 97.8 F Pulse Rate 88 90 Respiratory Rate 15 18 Blood Pressure 131/84 141/98 H Pulse Oximetry 96 Oxygen Delivery Method Room Air MDM - Extremity (Nontraumatic) MDM Narrative Medical decision making narrative: There is minimal redness at the distal aspect of his right thumb but this is where his symptoms seem does started with the discomfort. It has moved up his thumb and into his right hand. He does have streaking up his right upper extremity. There is no definitive abscess that would require drainage here in the ER. Given his immune modulating injections that he gets for his also of colitis or be concerned about cellulitis. He is nontoxic appearing. His vital signs are unremarkable. I do not feel that a trial of oral antibiotics at home is unreasonable given his presentation although he was given very strict return precautions. He expressed understanding and agreement. Discharge Plan Departure Patient Disposition: Home Clinical Impression: Cellulitis Instructions: DI for Cellulitis -- Adult Activity Restrictions/Additional Instructions: Take the antibiotics as directed. Continue any other medications as directed as well. If your symptoms worsen over the next 12 to 48 hours to include fevers, worsening redness in your arm, worsening pain or any other new symptoms please return to the emergency department. Prescriptions: New doxycycline hyclate 100 mg tablet 100 mg PO BID 7 Days Qty: 14 0RF Referrals: Dorys Whiting DO [Primary Care Provider] - Visit Report Forms: Patient Portal/API
[2022-02-03] MEDS: DOXYCYCLINE HYCLATE 100 MG TABLET PO (00:28)
== END 2022-02-03 00:30 | disposition home or self-care (01) ==
PROVIDERS: Emergency Provider Emergency Medicine; PCP Family Medicine
DX: L03.011 Cellulitis of right finger (principal)
CPT/HCPCS: 99283

== ENCOUNTER 2024-02-21 14:52 | Emergency (ER) | payer OTHER, SELFPAY ==
[2024-02-21 14:55] VITALS: BP 132/80; PULSE 93; RESP 16; TEMP 37.3; O2SAT 97; BMI 31.4
[2024-02-21 15:20] LABS: Strep Grp A by PCR Rapid Positive (Negative)
--- NOTE | 2024-02-21 16:05 | ED.URI ---
HPI - URI/Sore Throat General Chief Complaint: Upper Respiratory Symptoms Stated Complaint: Strep throat, ulcerative colitis active flare Time Seen by Provider: 02/21/24 15:31 Source: patient Mode of arrival: Ambulatory History of Present Illness HPI Narrative: 38-year-old male complains of sore throat, prior cough, no fevers. States that he is taking 4th month Rifampin for TB prior to starting immunosuppression injections for inflammatory bowel disease. No shortness of breath. Can swallow secretions, can move neck Related Data Previous Rx's Medication Instructions Recorded amoxicillin 875 mg tablet 875 mg PO BID dental infection 10 02/21/24 days #20 tabs Allergies Allergy/AdvReac Type Severity Reaction Status Date / Time No Known Drug Allergies Allergy Verified 02/21/24 15:00 Review of Systems Review of Systems Narrative: see HPI Patient History Medical History No chronic problems Ulcerative colitis Surgical History No history of previous surgery Social History Smoking Status: Former smoker Smoking Status: Former smoker alcohol intake frequency: holidays/special occasions only Substance Use Type: does not use Exam Narrative Exam Narrative: GENERAL: Well-developed patient, in mild distress. HEAD: Atraumatic. Normocephalic. EYES: Pupils equal round and reactive. Extraocular motions intact. No scleral icterus. No injection or drainage. ENT: Nose without bleeding, purulent drainage. Throat with symmetrical red tonsils and some punctate exudates, no uvula edema, no palatal edema. Moves neck well, handles secretions well, normal phonation. Airway patent. NECK: Trachea midline. Non tender CARDIOVASCULAR: Regular rate and rhythm without murmurs, gallops, or rubs. RESPIRATORY: Clear to auscultation. Breath sounds equal bilaterally. No wheezes, rales, or rhonchi. GASTROINTESTINAL: Abdomen soft, non-tender, nondistended. EXTREMITIES: No edema or joint tenderness. BACK: Nontender without deformity or crepitance. No flank tenderness. NEURO: AOx3. SKIN: No rash or erythema of visible areas Initial Vital Signs Initial Vital Signs: Vital Signs Temperature 99.2 F 02/21/24 14:55 Pulse Rate 93 H 02/21/24 14:55 Respiratory Rate 16 02/21/24 14:55 Blood Pressure 132/80 02/21/24 14:55 Pulse Oximetry 97 02/21/24 14:55 Oxygen Delivery Method Room Air 02/21/24 14:55 Course Orders Ordered: Discontinued Medications Amoxicillin (Amoxicillin 250 Mg Capsule) 1,000 mg PO NOW ONE Stop: 02/21/24 16:09 Last Admin: 02/21/24 16:35 Dose: 1,000 mg Documented By: BERNADETTE Vital Signs Vital signs: Vital Signs - 8 hr 02/21/24 14:55 Temperature 99.2 F Pulse Rate 93 H Respiratory Rate 16 Blood Pressure 132/80 Pulse Oximetry 97 Oxygen Delivery Method Room Air MDM - URI/Sore Throat Lab Data Attestation: I reviewed the patient's lab results. Lab results narrative: Rapid strep positive Labs: Lab Results 02/21/24 Range/Units 15:04 Group A Strep (PCR) Positive H (Negative) MDM Narrative Medical decision making narrative: Sore throat after recent cough, strep screen sent from triage was positive, exudative tonsillitis on exam. Phone call to Pharmacy, no known drug interaction with Amx and Rifampin. First dose PO Amoxicillin given in ED, antibiotic prescription send to his pharmacy. Discharge Plan Departure Patient Disposition: Home Clinical Impression: Exudative tonsillitis, Strep pharyngitis Activity Restrictions/Additional Instructions: Sore throat symptoms, recent cough, history of latent TB infection currently on 4th/last month of rifampin therapy, history of ulcerative colitis awaiting start of remitted therapy, now with sore throat, exudates on exam, strep screen positive that was sent from screening triage area on arrival. Case discussed with pharmacy, no interaction with amoxicillin and rifampin. First oral dose amoxicillin given, prescription for 10 day course. Lungs clear. No oxygen requirement. Recheck symptoms with your regular provider Sunday if not improving. Return to this/nearest emergency department for any change worsening symptoms or any concerns prior Prescriptions: New amoxicillin 875 mg tablet 875 mg PO BID 10 Days Qty: 20 0RF Referrals: Dorys Whiting DO [Primary Care Provider] - Stand Alone Forms: Patient Portal/API
--- NOTE | 2024-02-21 16:22 | PC.NURSE ---
patient was offered amoxicillin as per provider order. patient had concern that he is taking rifampin already and doesn't want a bag reaction with amoxicillin and that. Provider aware of concerns. Will continue to monitor.
[2024-02-21] MEDS: AMOXICILLIN 250 MG CAPSULE 1000 MG PO (16:35)
[2024-02-21 17:00] VITALS: BP 129/73; PULSE 75; RESP 18; TEMP 36.8
== END 2024-02-21 17:01 | disposition home or self-care (01) ==
PROVIDERS: Emergency Provider Emergency Medicine; PCP Family Medicine
DX: J02.0 Streptococcal pharyngitis (principal); Z87.891 Personal history of nicotine dependence
CPT/HCPCS: 87651; 99283